=== PATIENT | female | born 1940 | race Caucasian/White ===

== ENCOUNTER 2018-12-22 15:31 | Emergency (ER) | payer MEDICARE ==
[~2018-12-22] VITALS: Ht 157.5 cm; Wt 54.4 kg
[2018-12-22] MEDS ORDERED: CHOL200078 PO (15:50)
[2018-12-22] MEDS ORDERED: MULT-661 PO (15:50)
[2018-12-22] MEDS ORDERED: AMLO5TAB9 PO (15:50)
[2018-12-22] MEDS ORDERED: LOSA50TA39 PO (15:50)
[2018-12-22] MEDS ORDERED: VITA-287 PO (15:50)
[2018-12-22] MEDS ORDERED: HYDR25TA4 PO (15:50)
[2018-12-22] MEDS ORDERED: CALC-36 PO (15:50)
[2018-12-22 15:56] LABS: BASOPHILS % (AUTO) 0.5 % (0.0-2.0); EOSINOPHILS # (AUTO) 0.1 K/uL (0.0-0.7); EOSINOPHILS % (AUTO) 0.8 % (0.0-7.0); HEMATOCRIT 39.2 % (31.2-41.9); HEMOGLOBIN 13.3 g/dL (10.9-14.3); LYMPHOCYTES # (AUTO) 1.9 K/uL (20.0-40.0); LYMPHOCYTES % (AUTO) 22.8 % (20.5-51.5); MEAN CORPUSCULAR HEMOGLOBIN 28.5 uug (24.7-32.8); MEAN CORPUSCULAR HGB CONC 34 g/dL (32.3-35.6); MEAN CORPUSCULAR VOLUME 84.1 fL (75.5-95.3); MONOCYTES # (AUTO) 0.6 K/uL (2.0-10.0); MONOCYTES % (AUTO) 6.5 % (0.0-11.0); NEUTROPHILS # (AUTO) 5.9 K/uL (1.8-8.9); NEUTROPHILS % (AUTO) 69.4 % (38.5-71.5); PLATELET COUNT (AUTO) 293 K/uL (179-408); RED BLOOD CELL COUNT(AUTO) 4.66 MIL/uL (3.63-4.92); WHITE BLOOD COUNT (AUTO) 8.4 K/uL (3.8-11.8)
[2018-12-22 16:10] LABS: CARBON DIOXIDE 32 mmol/L (21-32); CHLORIDE 95 mmol/L (98-107); CREATININE 0.6 mg/dL (0.6-1.3); GLUCOSE 108 mg/dL (74-106); UREA NITROGEN, BLOOD 17 mg/dL (7-18)
[2018-12-22 16:14] LABS: ALANINE AMINOTRANSFERASE 26 U/L (14-59); ALKALINE PHOSPHATASE 72 U/L (50-136); ASPARTATE AMINOTRANSFERASE 23 U/L (15-37); BILIRUBIN,DIRECT 0.1 mg/dL (0.0-0.2); BILIRUBIN,TOTAL 0.4 mg/dL (0.2-1.0); TOTAL PROTEIN, SERUM 6.9 g/dL (6.4-8.2)
[2018-12-22] MEDS ORDERED: POTASSIUM CHLORIDE 20 MEQ TAB.PRT.SR ONE (16:45)
[2018-12-22] MEDS: POTASSIUM CHLORIDE 20 MEQ TAB.PRT.SR PO ONE (16:47)
--- NOTE | 2018-12-22 16:50 | NUR ---
PATIENT WAS SEEN BY MD. SHE IS A/A/O X3 IN NO DISTRESS. 12 LEAD EKG DONE. MEDICATION GIVEN ORDERED... SHE IS AMBULATORY WITH STEADY GAIT. DENIES DIZZINESS.
--- NOTE | 2018-12-22 17:01 | NUR ---
DC, RX AND FOLLOW UP INSTRUCTIONS GIVEN AND EXPLAINED TO PATIENT WHO STATES SHE UNDERSTANDS ALL INSTRUCTIONS.
== END 2018-12-22 17:06 | disposition home or self-care (01) ==
LOC: ER 15:31
DX: R42 Dizziness and giddiness (principal); R00.2 Palpitations; E87.6 Hypokalemia; Z79.899 Other long term (current) drug therapy
CPT/HCPCS: 36415; 70030-TC; 71045; 85025; 93005; A4663

== ENCOUNTER 2025-07-04 10:20 | Inpatient (IN) | payer MEDICARE, OTHER ==
[~2025-07-04] VITALS: Ht 157.5 cm; Wt 49.9 kg
[~2025-07-04 10:20] MED LIST: AMLO-212 PO; CALC-36 PO; CHOL200078 PO; HYDR25TA4 PO; LOSA50TA39 PO; MULT-661 PO; VITA-287 PO
[2025-07-04 11:13] VITALS: BP 153/56; TEMP 98.4
[2025-07-04 11:54] VITALS: BP 153/56; TEMP 98.4
[2025-07-04 15:30] VITALS: BP 159/65; TEMP 98.7; O2SAT 95
[2025-07-04] MEDS ORDERED: HYDR-3980 PO (17:24)
[2025-07-04] MEDS ORDERED: CALC-343 PO (17:25)
[2025-07-04] MEDS ORDERED: MULT-213 PO (17:26)
[2025-07-04] MEDS ORDERED: POTA10TA PO (17:29)
[2025-07-04] MEDS ORDERED: MULT400T7 PO (17:29)
[2025-07-04] MEDS: CALCIUM CARBONATE 500 MG TABLET PO SCH (21:16)
[2025-07-04] MEDS: APIXABAN 2.5 MG TABLET PO SCH (21:18)
[2025-07-04] MEDS: HYDROCODONE/APAP 10-325 MG TABLET PO PRN (21:18)
[2025-07-04 21:46] VITALS: BP 108/43; TEMP 99.7; O2SAT 96
[2025-07-05 06:59] VITALS: BP 128/52; TEMP 98.7; O2SAT 94
[2025-07-05 08:02] VITALS: BP 138/54; TEMP 100.1; O2SAT 91
[2025-07-05 08:10] VITALS: TEMP 98.9; O2SAT 94
[2025-07-05] MEDS ORDERED: MULTIVITAMINS,THERAPEUTIC TABLET PO SCH (09:00)
[2025-07-05] MEDS: LOSARTAN POTASSIUM 50 MG TABLET PO SCH (09:12)
[2025-07-05] MEDS: AMLODIPINE 5 MG TABLET PO SCH (09:12)
[2025-07-05] MEDS: MULTIVITAMINS,THERAPEUTIC TABLET PO SCH (09:13)
[2025-07-05] MEDS ORDERED: BISACODYL 5 MG TABLET.DR PO PRN (11:15)
[2025-07-05 15:46] VITALS: BP 125/50; TEMP 97.8; O2SAT 96
[2025-07-05 19:36] VITALS: BP 113/48; TEMP 99.1; O2SAT 93
[2025-07-06 06:14] VITALS: BP 134/56; TEMP 98.3; O2SAT 94
[2025-07-06 08:00] VITALS: BP 132/55; TEMP 99; O2SAT 92
[2025-07-06 12:43] LABS: PLATELET COUNT (AUTO) 308 K/uL (179-408); RED BLOOD CELL COUNT(AUTO) 3.71 MIL/uL (3.63-4.92); RED CELL DISTRIBUTION WIDTH 13.8 % (12.3-17.7); WHITE BLOOD COUNT (AUTO) 6.1 K/uL (3.8-11.8)
[2025-07-06 12:59] LABS: ASPARTATE AMINOTRANSFERASE 20 U/L (15-37); CREATININE 0.4 mg/dL (0.6-1.3); SODIUM SERUM 140 mmol/L (136-145); TOTAL PROTEIN, SERUM 6.2 g/dL (6.4-8.2); UREA NITROGEN, BLOOD 21 mg/dL (7-18)
[2025-07-06 16:01] VITALS: BP 122/52; TEMP 98.4; O2SAT 96
[2025-07-06] MEDS: ASPIRIN EC 81 MG TABLET.DR PO SCH (16:29)
[2025-07-06 20:00] VITALS: BP 135/51; TEMP 98.3; O2SAT 96
[2025-07-07 05:45] VITALS: BP 118/52; TEMP 98.3; O2SAT 95
[2025-07-07 07:28] VITALS: BP 134/57; TEMP 97.8; O2SAT 96
[2025-07-07] MEDS ORDERED: GADOTERATE MEGLUMINE 5 MMOL/10 ML VIAL IV ONE (15:26)
[2025-07-07 16:00] VITALS: BP 128/57; TEMP 97.6; O2SAT 98
[2025-07-07] MEDS ORDERED: ATORVASTATIN 40 MG TABLET PO SCH (21:00)
[2025-07-08] MEDS ORDERED: APIX2.5T PO (09:08)
[2025-07-08] MEDS ORDERED: ATOR80TA PO (09:09)
[2025-07-08] MEDS ORDERED: ASPI81TA31 PO (09:09)
[2025-07-10] MEDS ORDERED: ACET325T53 PO (11:04)
[2025-07-10] MEDS ORDERED: MAGN400O6 PO (11:04)
[2025-07-10] MEDS ORDERED: PANT40TA49 PO (11:04)
[2025-07-10] MEDS ORDERED: ONDA4VIA23 IV (11:04)
[2025-07-10] MEDS ORDERED: SOD62.5V IV (11:04)
== END 2025-07-07 18:44 | disposition short-term general hospital (02) | DRG 559 ==
PROVIDERS: ADMIT Physical Medicine & Rehabilitation Pain Medicine; ATTEND Physical Medicine & Rehabilitation Pain Medicine
DX: S32.591D Other specified fracture of right pubis, subsequent encounter for fracture with routine healing (principal); L89.154 Pressure ulcer of sacral region, stage 4; S72.141D Displaced intertrochanteric fracture of right femur, subsequent encounter for closed fracture with routine healing; S51.011D Laceration without foreign body of right elbow, subsequent encounter; S30.11XD Contusion of abdominal wall, subsequent encounter; W01.0XXD Fall on same level from slipping, tripping and stumbling without subsequent striking against object, subsequent encounter; D64.9 Anemia, unspecified; I10 Essential (primary) hypertension; N28.9 Disorder of kidney and ureter, unspecified; Z85.3 Personal history of malignant neoplasm of breast; Z88.2 Allergy status to sulfonamides; Z90.710 Acquired absence of both cervix and uterus; R47.81 Slurred speech; R53.1 Weakness
CPT/HCPCS: 36415; 70030-TC; 70450; 70553; 83605; 84443; 84484; 85025; 93307; 97535-GO-CO; A4663; A9575

== ENCOUNTER 2025-07-06 12:25 | Emergency (ER) | payer MEDICARE, OTHER ==
[~2025-07-06] VITALS: Ht 157.5 cm; Wt 49.9 kg
[~2025-07-06 12:25] MED LIST changes: +CALC-343 PO; -CALC-36 PO; -CHOL200078 PO; +HYDR-3980 PO; -HYDR25TA4 PO; +MULT-213 PO; -MULT-661 PO; +MULT400T7 PO; +POTA10TA PO; -VITA-287 PO
[2025-07-06 12:30] VITALS: BP 118/97
[2025-07-06 13:33] LABS: PLATELET COUNT (AUTO) 242 K/uL (179-408); RED BLOOD CELL COUNT(AUTO) 3.60 MIL/uL (3.63-4.92); RED CELL DISTRIBUTION WIDTH 14.0 % (12.3-17.7); WHITE BLOOD COUNT (AUTO) 6.0 K/uL (3.8-11.8)
[2025-07-06 13:48] LABS: IRON, SERUM 15 ug/dL (50-175)
[2025-07-06 14:13] LABS: LACTATE DEHYDROGENASE 296 U/L (81-234)
[2025-07-06] MEDS ORDERED: ASPIRIN 81 MG TAB.CHEW ONE (14:18)
[2025-07-06] MEDS: ASPIRIN 81 MG TAB.CHEW PO ONE (14:31)
[2025-07-06 14:47] LABS: CREATININE 0.5 mg/dL (0.6-1.3); SODIUM SERUM 139 mmol/L (136-145); UREA NITROGEN, BLOOD 20 mg/dL (7-18)
[2025-07-06 14:49] LABS: *BILIRUBIN,URIN NEGATIVE (NEGATIVE); *BLOOD, URINE 3+ (NEGATIVE); *COLOR,URINE YELLOW (YELLOW); *KETONES,URINE NEGATIVE (NEGATIVE); *PROTEIN,URINE 2+ (NEGATIVE); *UROBILINOGEN,URINE 0.2 E.U./dl (NORMAL); LEUKOCYTE ESTERASE ,URINE NEGATIVE (NEGATIVE); NITRITE, URINE NEGATIVE (NEGATIVE); UGLUCOSE NEGATIVE (NEGATIVE)
[2025-07-06 14:59] LABS: *CLARITY,URINE CLEAR (CLEAR)
[2025-07-06 15:17] LABS: SQUAMOUS EPITHELIAL CELL,UR FEW /HPF (NONE SEEN)
[2025-07-06 15:35] VITALS: BP 118/97; TEMP 97.6; O2SAT 97
[2025-07-08 05:08] LABS: *IMMUNOGLOBULIN G, SERUM 687.0 mg/dL (586-1602); CANCER ANTIGEN 15-3 23.4 U/mL (0.0-25.0); CARBOHYDRATE ANTIGEN, 19-9 5.0 U/mL (0-35); CARCINOEMBRYONIC AG (CEA) 1.5 ng/mL (0.0-4.7); FOLATE (FOLIC ACID), SERUM 19.9 ng/mL (>3.0); IMMUNOGLOBULIN A, SERUM 119.0 mg/dL (64-422); IMMUNOGLOBULIN M, SERUM 56.0 mg/dL (26-217)
[2025-07-08 06:10] LABS: FREE KAPPA LT CHAINS SERUM 29.8 mg/L (3.3-19.4); FREE LAMBDA LT CHAIN SERUM 21.2 mg/L (5.7-26.3); KAPPA/LAMBDA RATIO SERUM 1.41 (0.26-1.65)
[2025-07-10] MEDS ORDERED: MAGN400O6 PO (11:04)
[2025-07-10] MEDS ORDERED: ACET325T53 PO (11:04)
[2025-07-10] MEDS ORDERED: PANT40TA49 PO (11:04)
[2025-07-10] MEDS ORDERED: ONDA4VIA23 IV (11:04)
[2025-07-10] MEDS ORDERED: SOD62.5V IV (11:04)
== END 2025-07-06 15:40 | disposition home or self-care (01) ==
LOC: ER 12:25
DX: G45.9 Transient cerebral ischemic attack, unspecified (principal); D50.9 Iron deficiency anemia, unspecified; I10 Essential (primary) hypertension; Z79.899 Other long term (current) drug therapy; Z85.3 Personal history of malignant neoplasm of breast; Z88.2 Allergy status to sulfonamides; Z88.7 Allergy status to serum and vaccine; Z87.19 Personal history of other diseases of the digestive system; Z87.39 Personal history of other diseases of the musculoskeletal system and connective tissue
CPT/HCPCS: 36415; 82378; 82746; 82784; 83550; 83605; 83615; 84155; 84165; 84484; 85025; 85730; 86300; 86301; 86334; 87086; A4606; A4663

== ENCOUNTER 2025-07-07 18:59 | Inpatient (IN) | payer MEDICARE, OTHER ==
[~2025-07-07] VITALS: Ht 157.5 cm; Wt 49.9 kg
[2025-07-07] MEDS ORDERED: MAGNESIUM HYDROXIDE 30 ML LIQUID UDC PO PRN (19:15)
[2025-07-07] MEDS ORDERED: ONDANSETRON 4 MG/2 ML VIAL IV PRN (19:15)
[2025-07-07] MEDS: APIXABAN 2.5 MG TABLET PO SCH (21:12)
[2025-07-07] MEDS: ATORVASTATIN 40 MG TABLET PO SCH (21:13)
[2025-07-07 21:21] LABS: PLATELET COUNT (AUTO) 310 K/uL (179-408); RED BLOOD CELL COUNT(AUTO) 3.39 MIL/uL (3.63-4.92); RED CELL DISTRIBUTION WIDTH 14.0 % (12.3-17.7); WHITE BLOOD COUNT (AUTO) 5.0 K/uL (3.8-11.8)
[2025-07-07 21:35] LABS: ASPARTATE AMINOTRANSFERASE 14 U/L (15-37); CREATININE 0.6 mg/dL (0.6-1.3); SODIUM SERUM 139 mmol/L (136-145); TOTAL PROTEIN, SERUM 5.4 g/dL (6.4-8.2); UREA NITROGEN, BLOOD 26 mg/dL (7-18)
[2025-07-08] VITALS (7 sets, daily range): BP systolic 90–143; BP diastolic 51–57; TEMP 97.9–99; O2SAT 93–98
[2025-07-08] MEDS: PANTOPRAZOLE SODIUM 40 MG VIAL IV SCH (09:05)
[2025-07-08] MEDS: ASPIRIN 81 MG TAB.CHEW PO SCH (09:05)
[2025-07-08] MEDS ORDERED: APIX2.5T PO (09:08)
[2025-07-08] MEDS ORDERED: ASPI81TA31 PO (09:09)
[2025-07-08] MEDS ORDERED: ATOR80TA PO (09:09)
[2025-07-08 09:10] LABS: PLATELET COUNT (AUTO) 339 K/uL (179-408); RED BLOOD CELL COUNT(AUTO) 3.91 MIL/uL (3.63-4.92); RED CELL DISTRIBUTION WIDTH 13.9 % (12.3-17.7); WHITE BLOOD COUNT (AUTO) 5.7 K/uL (3.8-11.8)
[2025-07-08] MEDS: ACETAMINOPHEN 325 MG TABLET PO PRN (09:14)
[2025-07-08 09:20] LABS: CREATININE 0.4 mg/dL (0.6-1.3); SODIUM SERUM 140 mmol/L (136-145); UREA NITROGEN, BLOOD 21 mg/dL (7-18)
[2025-07-08] MEDS ORDERED: IOHEXOL 350 100 ML INFUS..BTL ONE (14:16)
[2025-07-08] MEDS ORDERED: SWABABLE VALVE TRANSFER SET EA MC ONE (14:16)
[2025-07-08] MEDS ORDERED: IV NORMAL SALINE 250 ML IV ONE (14:16)
[2025-07-09 00:26] VITALS: BP 152/56; TEMP 98.3; O2SAT 92
[2025-07-09 05:10] VITALS: BP 141/57; TEMP 98.7; O2SAT 93
[2025-07-09 07:15] LABS: PLATELET COUNT (AUTO) 371 K/uL (179-408); RED BLOOD CELL COUNT(AUTO) 3.63 MIL/uL (3.63-4.92); RED CELL DISTRIBUTION WIDTH 13.6 % (12.3-17.7); WHITE BLOOD COUNT (AUTO) 5.3 K/uL (3.8-11.8)
[2025-07-09 07:21] LABS: CREATININE 0.5 mg/dL (0.6-1.3); SODIUM SERUM 139 mmol/L (136-145); UREA NITROGEN, BLOOD 18 mg/dL (7-18)
[2025-07-09 08:16] VITALS: BP 128/39; TEMP 98.9; O2SAT 94
[2025-07-09] MEDS: SOD FERRIC GLUC COMPLX/SUCROSE 125 MG in IV NORMAL SALINE 100 ML IV SCH (14:10)
[2025-07-09 15:19] VITALS: BP 140/60; TEMP 98.5
[2025-07-09 19:15] VITALS: BP 111/87; TEMP 99; O2SAT 92
[2025-07-09 20:41] VITALS: O2SAT 96
[2025-07-10] VITALS (7 sets, daily range): BP systolic 111–155; BP diastolic 24–99; TEMP 97.8–99.5; O2SAT 93–97
[2025-07-10] MEDS: PANTOPRAZOLE SODIUM 40 MG TABLET.DR PO SCH (06:12)
[2025-07-10 07:01] LABS: PLATELET COUNT (AUTO) 398 K/uL (179-408); RED BLOOD CELL COUNT(AUTO) 3.69 MIL/uL (3.63-4.92); RED CELL DISTRIBUTION WIDTH 13.5 % (12.3-17.7); WHITE BLOOD COUNT (AUTO) 6.2 K/uL (3.8-11.8)
[2025-07-10 07:15] LABS: CREATININE 0.4 mg/dL (0.6-1.3); SODIUM SERUM 139 mmol/L (136-145); UREA NITROGEN, BLOOD 14 mg/dL (7-18)
[2025-07-10] MEDS: POTASSIUM CHLORIDE 20 MEQ POWDER PACKET GT ONE (09:44)
[2025-07-10] MEDS ORDERED: ONDA4VIA23 IV (11:04)
[2025-07-10] MEDS ORDERED: ACET325T53 PO (11:04)
[2025-07-10] MEDS ORDERED: SOD62.5V IV (11:04)
[2025-07-10] MEDS ORDERED: MAGN400O6 PO (11:04)
[2025-07-10] MEDS ORDERED: PANT40TA49 PO (11:04)
[2025-07-10] MEDS: LOPERAMIDE HCL 2 MG CAPSULE PO PRN (17:58)
[2025-07-11 05:40] VITALS: BP 147/45; TEMP 99.1; O2SAT 95
[2025-07-11 06:51] LABS: PLATELET COUNT (AUTO) 440 K/uL (179-408); RED BLOOD CELL COUNT(AUTO) 3.63 MIL/uL (3.63-4.92); RED CELL DISTRIBUTION WIDTH 13.9 % (12.3-17.7); WHITE BLOOD COUNT (AUTO) 6.0 K/uL (3.8-11.8)
[2025-07-11] MEDS: LOSARTAN POTASSIUM 50 MG TABLET PO SCH (08:53)
[2025-07-11] MEDS: AMLODIPINE 5 MG TABLET PO SCH (08:56)
[2025-07-11 11:32] VITALS: BP 114/42; TEMP 98.8; O2SAT 94
[2025-07-11 14:10] LABS: CREATININE 0.7 mg/dL (0.6-1.3); SODIUM SERUM 140 mmol/L (136-145); UREA NITROGEN, BLOOD 20 mg/dL (7-18)
[2025-07-11 15:40] VITALS: BP 132/46; TEMP 98.7; O2SAT 96
[2025-07-11] MEDS: ACIDOPHILUS/BULGARICUS CHEW TAB PO SCH (20:43)
[2025-07-12 05:54] VITALS: BP 135/42; TEMP 98.5; O2SAT 96
[2025-07-12 07:17] LABS: PLATELET COUNT (AUTO) 430 K/uL (179-408); RED BLOOD CELL COUNT(AUTO) 3.54 MIL/uL (3.63-4.92); RED CELL DISTRIBUTION WIDTH 13.9 % (12.3-17.7); WHITE BLOOD COUNT (AUTO) 6.4 K/uL (3.8-11.8)
[2025-07-12 07:31] LABS: CREATININE 0.5 mg/dL (0.6-1.3); SODIUM SERUM 139 mmol/L (136-145); UREA NITROGEN, BLOOD 18 mg/dL (7-18)
[2025-07-12 11:31] VITALS: BP 135/55; TEMP 98.1; O2SAT 97
[2025-07-12] MEDS: ACIDOPHILUS/BULGARICUS CHEW TAB PO SCH (14:38)
[2025-07-12 15:41] VITALS: BP 121/47; TEMP 98.8; O2SAT 96
[2025-07-12 19:49] VITALS: BP 84/31; TEMP 98.5; O2SAT 93
[2025-07-13 05:27] VITALS: BP 123/56; TEMP 98.4; O2SAT 93
[2025-07-13 12:00] VITALS: BP 117/48; TEMP 98.2; O2SAT 96
[2025-07-13 15:42] LABS: PLATELET COUNT (AUTO) 453 K/uL (179-408); RED BLOOD CELL COUNT(AUTO) 3.54 MIL/uL (3.63-4.92); RED CELL DISTRIBUTION WIDTH 14.1 % (12.3-17.7); WHITE BLOOD COUNT (AUTO) 7.5 K/uL (3.8-11.8)
[2025-07-13 16:19] VITALS: BP 119/44; TEMP 99.1; O2SAT 96
[2025-07-13 19:47] VITALS: BP 123/40; TEMP 98.5; O2SAT 95
[2025-07-14 04:56] VITALS: BP 125/38; TEMP 98.4; O2SAT 94
[2025-07-14 06:58] LABS: PLATELET COUNT (AUTO) 460 K/uL (179-408); RED BLOOD CELL COUNT(AUTO) 3.56 MIL/uL (3.63-4.92); RED CELL DISTRIBUTION WIDTH 14.4 % (12.3-17.7); WHITE BLOOD COUNT (AUTO) 6.1 K/uL (3.8-11.8)
[2025-07-14 07:20] VITALS: BP 109/88; TEMP 98.8; O2SAT 98
[2025-07-14 12:00] VITALS: BP 114/51; TEMP 98.8; O2SAT 97
[2025-07-14] MEDS: REMEDY ESSENTIAL ZINC PASTE 113 GM TOP SCH (12:08)
[2025-07-14 16:00] VITALS: BP 130/66; TEMP 98.7; O2SAT 95
[2025-07-14 19:30] VITALS: BP 111/44; TEMP 98.6; O2SAT 93
[2025-07-15 06:06] VITALS: BP 138/54; TEMP 98.7; O2SAT 95
[2025-07-15 11:57] VITALS: BP 121/47; TEMP 98.2; O2SAT 95
[2025-07-15] MEDS ORDERED: HYDROCODONE/APAP 10-325 MG TABLET PO PRN (15:15)
[2025-07-15] MEDS: LIDOCAINE 5% PATCH TD SCH (15:17)
[2025-07-15 16:03] VITALS: BP 106/40; TEMP 98.8; O2SAT 96
[2025-07-15 19:00] VITALS: BP 108/45; TEMP 99.2; O2SAT 94
[2025-07-15] MEDS: CHOLESTYRAMINE/ASPARTAME (LIGHT) 4 G/PKT PACKET PO SCH (20:40)
[2025-07-16 06:05] VITALS: BP 124/46; TEMP 97.6; O2SAT 100
[2025-07-16 10:29] LABS: PLATELET COUNT (AUTO) 416 K/uL (179-408); RED BLOOD CELL COUNT(AUTO) 3.40 MIL/uL (3.63-4.92); RED CELL DISTRIBUTION WIDTH 14.4 % (12.3-17.7); WHITE BLOOD COUNT (AUTO) 7.1 K/uL (3.8-11.8)
[2025-07-16 10:39] LABS: CREATININE 0.5 mg/dL (0.6-1.3); SODIUM SERUM 136 mmol/L (136-145); UREA NITROGEN, BLOOD 17 mg/dL (7-18)
[2025-07-16 10:54] VITALS: BP 115/60; TEMP 98; O2SAT 97
[2025-07-16] MEDS: POTASSIUM CHLORIDE 20 MEQ TAB.PRT.SR PO ONE (11:21)
[2025-07-16] MEDS: POTASSIUM CHLORIDE 20 MEQ POWDER PACKET PO ONE (12:22)
[2025-07-16 14:33] VITALS: BP 116/59; TEMP 98.5; O2SAT 99
[2025-07-16 20:29] VITALS: TEMP 98.5
== END 2025-07-16 21:05 | disposition short-term general hospital (02) | DRG 64 ==
LOC: TELE3 18:59 → MEDSURG3 07-10 09:45
PROVIDERS: ADMIT Nurse Practitioner Family; ATTEND Nurse Practitioner Family
PROC: 05HC33Z Insertion of Infusion Device into Left Basilic Vein, Percutaneous Approach (ICD-10-PCS; principal; 2025-07-11)
DX: I63.233 Cerebral infarction due to unspecified occlusion or stenosis of bilateral carotid arteries (principal); E43 Unspecified severe protein-calorie malnutrition; S72.141D Displaced intertrochanteric fracture of right femur, subsequent encounter for closed fracture with routine healing; W19.XXXD Unspecified fall, subsequent encounter; R47.81 Slurred speech; R29.700 NIHSS score 0; Z88.2 Allergy status to sulfonamides; N28.9 Disorder of kidney and ureter, unspecified; E78.5 Hyperlipidemia, unspecified; E88.09 Other disorders of plasma-protein metabolism, not elsewhere classified; K52.9 Noninfective gastroenteritis and colitis, unspecified; Z75.1 Person awaiting admission to adequate facility elsewhere; E87.6 Hypokalemia; I48.91 Unspecified atrial fibrillation; D50.9 Iron deficiency anemia, unspecified; I10 Essential (primary) hypertension; Z79.01 Long term (current) use of anticoagulants; Z79.82 Long term (current) use of aspirin; Z85.3 Personal history of malignant neoplasm of breast; Z87.19 Personal history of other diseases of the digestive system; Z79.899 Other long term (current) drug therapy
CPT/HCPCS: 36415; 82378; 82746; 82784; 83550; 83605; 83615; 83735; 84100; 84155; 84165; 84443; 84484; 85025; 85730; 86300; 86301; 86334; 87086; 93880; 97535-GO-CO; A4606; A4663; A6213; G0378; J2470; J2916; Q9967